=== PATIENT | female | born 1990 | race Caucasian/White ===

== ENCOUNTER 2017-02-09 15:24 | Emergency (ER) | payer OTHER ==
[~2017-02-09] VITALS: Ht 165.1 cm; Wt 68.1 kg
[~2017-02-09 15:24] MED LIST: BACTRIM,SEPT1 TABLET PO; CORTISPORIN EAR10 ML LEFT EAR; EFFEXOR XR150 MG PO; FLEXERIL5 MG PO; FLUOXETINE HCL10 MG PO; HYDROCODON-ACE1 EAC7 PO; MOBIC7.5 MG PO; MOTRIN600 MG PO; Motrin PO; NOHOMEMEDS; PREDNISONE10 M1 PO
[2017-02-09] MEDS ORDERED: FIORICET 50-301 EACH PO (17:51)
[2017-02-09 18:15] VITALS: BP 134/84
== END 2017-02-09 18:16 | disposition home or self-care (01) ==
LOC: EME 15:24
DX: R51 Headache (principal)
CPT/HCPCS: 70450; 99281; 99285; J1200; J1885; J2765; J7030

== ENCOUNTER 2017-08-27 16:16 | Emergency (ER) | payer OTHER ==
[~2017-08-27] VITALS: Ht 165.1 cm; Wt 69.6 kg
[~2017-08-27 16:16] MED LIST changes: +FIORICET 50-301 EACH PO
[2017-08-27 16:36] LABS: HEMATOCRIT 43.1 % (36.0-46.0); MCV 88.5 FL (83-99); MEAN PLAT.VOLUME 9.7 uM^3 (9.5-12.4); PLATELET COUNT 219 K/uL (156-360); RBC DIS.WIDTH-CV 12.2 % (11.8-14.6); RBC DIS.WIDTH-SD 39.7 % (39-53); RED BLOOD COUNT 4.87 M/uL (3.80-5.20); WHITE BLOOD COUNT 15.5 K/uL (4.1-10.2)
[2017-08-27 16:44] LABS: CHLORIDE 103 mEq/L (99-109); POTASSIUM 3.6 mEq/L (3.7-5.4); SODIUM 136 mEq/L (136-147)
[2017-08-27 16:46] LABS: GLUCOSE 116 mg/dL (70-99)
[2017-08-27 16:47] LABS: ANION GAP 10 MEQ/L (2-14)
[2017-08-27 16:48] LABS: TOTAL BILIRUBIN 1.3 mg/dL (0.0-1.0)
[2017-08-27 16:49] LABS: ALKALINE PHOSPHATASE 73 IU/L (3-129)
[2017-08-27 16:50] LABS: GFR ESTIMATE (CALCULATED) > 59 mL/min/
[2017-08-27 16:51] LABS: UREA NITROGEN (BUN) 9 mg/dL (9-23)
[2017-08-27 16:53] LABS: ADD MIUA? YES; BILIRUBIN NEGATIVE; BLOOD SMALL; COLOR YELLOW ((YELLOW)); GLUCOSE (STRIP) NEGATIVE; KETONES 5; LEUKOCYTES MODERATE; NITRITE NEGATIVE; PROTEIN (STRIP) 30; SPECIFIC GRAVITY 1.016 (1.000-1.030)
[2017-08-27 16:58] LABS: QUANTITATIVE HCG < 4.0 MIU/ML
[2017-08-27 17:11] LABS: BACTERIA 2+ /HPF; CASTS NONE SEEN /LPF; CRYSTALS NONE SEEN; EPITHELIAL CELLS 1+ /HPF; MUCUS NONE SEEN /LPF; RED BLOOD CELLS 0-5 /HPF (0-5); UCUL ADDED? YES; WHITE BLOOD CELLS 15-20 /HPF (0-5)
[2017-08-27] MEDS ORDERED: ZOFRAN ODT4 MG PO (17:50)
[2017-08-27] MEDS ORDERED: ULTRAM50 MG PO (17:50)
[2017-08-27] MEDS ORDERED: KEFLEX500 MG PO (17:50)
[2017-08-27 20:34] VITALS: BP 128/78
== END 2017-08-27 20:35 | disposition home or self-care (01) ==
LOC: EME 16:16
DX: N39.0 Urinary tract infection, site not specified (principal); F32.9 Major depressive disorder, single episode, unspecified; Z97.5 Presence of (intrauterine) contraceptive device
CPT/HCPCS: 76856; 80053; 81003; 84702; 85027; 87077; 87086; 87186; 99281; 99284

== ENCOUNTER 2017-12-15 15:57 | Emergency (ER) | payer OTHER ==
[~2017-12-15] VITALS: Ht 165.1 cm; Wt 68.9 kg
[~2017-12-15 15:57] MED LIST changes: +KEFLEX500 MG PO; +ULTRAM50 MG PO; +ZOFRAN ODT4 MG PO
[2017-12-15 16:29] LABS: HEMATOCRIT 46.9 % (36.0-46.0); HEMOGLOBIN 16.5 G/DL (11.9-15.5); MCH 31.7 PG (29.0-34.0); MCHC 35.2 G/DL (30.0-36.0); PLATELET COUNT 214 K/uL (156-360); RBC DIS.WIDTH-CV 12.1 % (11.8-14.6); RBC DIS.WIDTH-SD 39.8 % (39-53); RED BLOOD COUNT 5.21 M/uL (3.80-5.20); WHITE BLOOD COUNT 15.5 K/uL (4.1-10.2)
[2017-12-15 16:43] LABS: ALBUMIN 4.8 g/dL (3.2-4.8); CHLORIDE 106 mEq/L (99-109)
[2017-12-15 16:44] LABS: SODIUM 140 mEq/L (136-147)
[2017-12-15 16:46] LABS: GLUCOSE 104 mg/dL (70-99); TOTAL PROTEIN 7.9 g/dL (6.4-8.3)
[2017-12-15 16:48] LABS: TOTAL BILIRUBIN 1.3 mg/dL (0.0-1.0)
[2017-12-15 16:49] LABS: ALKALINE PHOSPHATASE 77 IU/L (3-129); CREATININE 0.8 mg/dL (0.6-1.3); GFR ESTIMATE (CALCULATED) > 59 mL/min/
[2017-12-15 16:51] LABS: AST (GOT) 20 IU/L (2-34); UREA NITROGEN (BUN) 8 mg/dL (9-23)
[2017-12-15 16:52] LABS: ALT (GPT) 19 IU/L (3-49)
[2017-12-15 16:58] LABS: QUANTITATIVE HCG < 4.0 MIU/ML
[2017-12-15 18:57] LABS: APPEARANCE SL.HAZY ((CLEAR)); BILIRUBIN NEGATIVE; BLOOD MODERATE; COLOR YELLOW ((YELLOW)); GLUCOSE (STRIP) NEGATIVE; KETONES NEGATIVE; LEUKOCYTES TRACE; NITRITE NEGATIVE; PROTEIN (STRIP) NEGATIVE; SPECIFIC GRAVITY 1.015 (1.000-1.030)
[2017-12-15] MEDS ORDERED: KEFLEX500 MG PO (20:12)
[2017-12-15] MEDS ORDERED: MOTRIN800 MG PO (20:12)
[2017-12-15] MEDS ORDERED: ZOFRAN ODT8 MG PO (20:14)
[2017-12-15 20:21] LABS: BACTERIA RARE /HPF; EPITHELIAL CELLS 1+ /HPF; MUCUS TRACE /LPF; RED BLOOD CELLS 20-30 /HPF (0-5); WHITE BLOOD CELLS 15-20 /HPF (0-5)
[2017-12-15 20:57] VITALS: BP 157/94
== END 2017-12-15 20:58 | disposition home or self-care (01) ==
LOC: EME 15:57
PROVIDERS: Physician Assistant
DX: N12 Tubulo-interstitial nephritis, not specified as acute or chronic (principal); Z97.5 Presence of (intrauterine) contraceptive device
CPT/HCPCS: 74018; 80053; 81003; 84702; 85027; 87077; 87086; 87186; 99281; 99284; J0696; J1885